=== PATIENT | female | born 1970 | race Caucasian/White ===

== ENCOUNTER 2017-01-25 09:17 | Emergency (ER) | payer OTHER ==
--- NOTE | 2017-01-25 09:37 | ED ---
General Adult HPI - General Chief complaint: Extremity Injury, Lower Stated complaint: fall, [facility] Time Seen by Provider: 01/25/17 09:30 Source: patient, RN notes reviewed Mode of arrival: wheelchair Limitations: no limitations - History of Present Illness Initial comments: Patient is a 46-year-old female who presents emergency room today with chief complaint of an injury to the right knee times one day. Does admit that she was at work yesterday when she slipped. States she did not fall but she believes she twisted the right knee. States she was able to continue to work and ambulate. States she was walking with a limp. States that seems like it's gotten tighter and more difficulty walking at this time is experiencing some pain in the posterior lateral aspect of the right knee. States worse with certain movements. Denies any other complaints or associated symptoms. Patient denies any recent fever, chills, shortness of breath, chest pain, back pain, abdominal pain, nausea or vomiting, numbness or tingling, dysuria or hematuria, constipation or diarrhea, headaches or visual changes, or any other complaints. - Related Data Previous Rx's Medication Instructions Recorded Ibuprofen [Motrin] 600 mg PO Q6HR PRN #40 day 01/25/17 Allergies Allergy/AdvReac Type Severity Reaction Status Date / Time aspirin Allergy Unknown Verified 01/25/17 09:29 Review of Systems ROS Statement: Those systems with pertinent positive or pertinent negative responses have been documented in the HPI. ROS Other: All systems not noted in ROS Statement are negative. Past Medical History Past Medical History: GERD/Reflux Additional Past Medical History / Comment(s): back pain, ulcers History of Any Multi-Drug Resistant Organisms: None Reported Past Surgical History: Cholecystectomy, Tubal Ligation Past Psychological History: No Psychological Hx Reported Smoking Status: Never smoker Past Alcohol Use History: None Reported Past Drug Use History: None Reported General Exam - General Exam Comments Initial Comments: General: The patient is awake and alert, in no distress, and does not appear acutely ill. Neck: The neck is supple, there is no tenderness or JVD. Cardiovascular: There is a regular rate and rhythm. No murmur, rub or gallop is appreciated. Respiratory: Lungs are clear to auscultation, respirations are non-labored, breath sounds are equal. No wheezes, stridor, rales, or rhonchi. Musculoskeletal: Patient does have normal appearance the right knee no obvious swelling. She shows limited range of motion both flexion and extension minus approximately 5-10. Patient sensations are intact with pulses are bilaterally 2+. Does have tenderness over the lateral posterior aspects of the right knee. Does have a positive varus stress. Negative valgus. Neurological: A&O x 3. CN II-XII intact, There are no obvious motor or sensory deficits. Coordination appears grossly intact. Speech is normal. Skin: Skin is warm and dry and no rashes or lesions are noted. Psychiatric: Normal mood and affect. Limitations: no limitations Course Vital Signs 01/25/17 09:27 Temperature 98.1 F Pulse Rate 80 Respiratory 20 Rate Blood Pressure 131/77 O2 Sat by Pulse 98 Oximetry Medical Decision Making - Medical Decision Making Patient reexamined at this time shows no signs of distress. Patient's x-ray no acute fracture dislocation. Patient will placed in knee immobilizer for possible ligamentous injury. Advised follow-up orthopedics. Advised return if any symptoms increase or worsen or for any other concerns. Disposition Clinical Impression: Knee injury Disposition: HOME SELF-CARE Condition: Good Instructions: Knee Pain (ED) Additional Instructions: Please use medication as discussed. Please follow-up with orthopedics in the next 2 days. Please return to emergency room if the symptoms increase or worsen or for any other concerns. Prescriptions: Ibuprofen [Motrin] 600 mg PO Q6HR PRN #40 day PRN Reason: Pain Referrals: Eduar Batista MD [Primary Care Provider] - 1-2 days Renny Ann DO [Doctor of Osteopathic Medicine] - 1-2 days Time of Disposition: 10:51
--- NOTE | 2017-01-25 10:46 | XR ---
EXAMINATION TYPE: XR knee complete RT DATE OF EXAM: 01/25/2017 10:22 AM COMPARISON: NONE HISTORY: Limited mobility after twisting injury with lateral knee pain. TECHNIQUE: 3 radiographic views of the right knee were obtained. FINDINGS: There is normal alignment of the femoral tibial and patellofemoral joints. No evidence of f racture or dislocation. Joint spaces are preserved. Small suprapatellar joint effusion is present. Os seous mineralization is unremarkable. No radiopaque foreign bodies. IMPRESSION: No evidence of fracture or dislocation. If there is clinical concern for ligamentous inju ry given the provided history MR could be performed for further evaluation on a nonemergent basis.
[2017-01-25 11:39] VITALS: BP 124/82; PULSE 64; RESP 18; TEMP 97.4
== END 2017-01-25 11:40 | disposition home or self-care (01) ==
LOC: EC 09:17
DX: S89.91XA Unspecified injury of right lower leg, initial encounter (principal); M25.561 Pain in right knee; Z88.6 Allergy status to analgesic agent; W01.0XXA Fall on same level from slipping, tripping and stumbling without subsequent striking against object, initial encounter; Y92.69 Other specified industrial and construction area as the place of occurrence of the external cause; Y99.0 Civilian activity done for income or pay
CPT/HCPCS: 99283

== ENCOUNTER 2023-10-13 07:55 | Emergency (ER) | payer OTHER ==
[2023-10-13 08:15] VITALS: TEMP 97
[2023-10-13] MEDS ORDERED: KETOROLAC 15 MG/ML 1 ML VIAL IVP STA (08:15)
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
[2023-10-13 08:40] LABS: Anisocytosis Slight; Basophils # (A) 0.1 k/uL (0-0.2); Basophils % (A) 1 %; Eosinophils # (A) 0.6 k/uL (0-0.7); Eosinophils % (A) 12 %; HCT 34.4 % (34.0-46.0); HGB 10.5 gm/dL (11.4-16.0); Hypochromasia Marked; Lymphocytes # (A) 1.2 k/uL (1.0-4.8); Lymphocytes % (A) 23 %; MCHC 30.6 g/dL (31.0-37.0); MCV 72.1 fL (80.0-100.0); Mean Platelet Volume 7.4; Microcytosis Moderate; Monocytes # (A) 0.3 k/uL (0-1.0); Monocytes % (A) 6 %; Neutrophils # (A) 2.8 k/uL (1.3-7.7); Neutrophils % (A) 55 %; Platelet Count 201 k/uL (150-450); RBC 4.77 m/uL (3.80-5.40); RDW 17.4 % (11.5-15.5); WBC 5.1 k/uL (3.8-10.6)
[2023-10-13 08:51] LABS: ALT 26 U/L (4-34); AST 30 U/L (14-36); African American GFR (CKD) >90 (>60 ml/min/1.73 sqM); Alkaline Phosphatase 88 U/L (38-126); Anion Gap 7 mmol/L; Blood Urea Nitrogen 15 mg/dL (7-17); Calcium 9.2 mg/dL (8.4-10.2); Carbon Dioxide 23 mmol/L (22-30); Chloride 112 mmol/L (98-107); Glucose 106 mg/dL (74-99); Non-African American GFR(CKD) >90 (>60 ml/min/1.73 sqM); Potassium 4.2 mmol/L (3.5-5.1); Sodium 142 mmol/L (137-145)
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
--- NOTE | 2023-10-13 09:23 | XR ---
EXAMINATION TYPE: XR chest 2V DATE OF EXAM: 10/13/2023 9:14 AM CLINICAL INDICATION:Female, 53 years old with history of Difficulty breathing ; COMPARISON: Sternal radiograph. TECHNIQUE: XR chest 2V Frontal and lateral views of the chest. FINDINGS: Lungs/Pleura: There is no evidence of pleural effusion, focal consolidation, or pneumothorax. Pulmonary vascularity: Unremarkable. Heart/mediastinum: Cardiomediastinal silhouette is unremarkable. Musculoskeletal: No acute osseous pathology. Other findings: None IMPRESSION: No acute cardiopulmonary disease/process.
[2023-10-13 09:33] VITALS: BP 146/84
[2023-10-13 10:49] VITALS: PULSE 83; RESP 16
== END 2023-10-13 10:47 | disposition home or self-care (01) ==
LOC: EC 07:55
DX: R07.89 Other chest pain (principal); Z88.6 Allergy status to analgesic agent; Z90.49 Acquired absence of other specified parts of digestive tract; W22.09XA Striking against other stationary object, initial encounter; Y92.410 Unspecified street and highway as the place of occurrence of the external cause
CPT/HCPCS: 36415; 93005; 80053; 84484; 85025; 71120; 71046; 99285; 96374; J1885

== ENCOUNTER → 2024-09-27 | Outpatient (CLI) | payer OTHER ==
[~2024-09-27] MED LIST: REGADENOSON 0.4 MG/5 ML SYRINGE IV PRN
--- NOTE | 2024-09-27 10:43 | CA ---
Lexiscan Nuclear Stress Test Report Name: Jeannie Dawson Exam Date: 09/27/2024 09:21 Exam Location: [facility] Ht (in): 61 Wt (lb): 183 BSA: 1.82 Ordering Phys: Randal Batista MD Referring Phys: RANDAL BATISTA,, Technologist: Tavon Lui Age: 54 Gender: F : 1970 Procedure CPT: Indications: I20.89 OTHER FORMS OF ANGINA PECTORIS ICD-10 Codes: Patient History: Medications: losartan Meds past 24 hrs: Pretest Chest Pain: STRESS TEST Lexiscan Protocol Exercise Duration (min:sec): 02:[address] Depressions (mm): Angina Score: Chaudhari Score: Resting HR (bpm): 67 Peak HR (bpm): 93 Resting BP (mmHg): 139 / 72 Peak BP (mmHg): 131 / 71 MPHR: 167 Target HR: 142 % MPHR: 56 METS: 1.0 Total Dose: Peak Dose: Atropine: Double Product: 97400 BP Response: Stress Termination: infusion complete Stress Symptoms: no symptoms Stress Summary: ECG ANALYSIS Resting ECG: Normal sinus rhythm with incomplete right bundle branch block Stress ECG: no significant ST-T wave changes concerning for ischemia. No sustained arrhythmias or ectopic beats during stress test. CONCLUSIONS 1. Normal hemodynamic and clinical response to Lexiscan infusion. 2. Non-ischemic EKG response to lexiscan infusion Please refer to the nuclear imaging portion of this stress test for complete interpretation of the study. Dr Jonathan High (Electronically Signed) Final Date: 27 September 2024 10:43
--- NOTE | 2024-09-27 12:22 | NM ---
EXAMINATION TYPE: NM stress lexiscan cardiolite DATE OF EXAM: 09/27/2024 COMPARISON: NONE CLINICAL INDICATION: Female, 54 years old with history of I20.89 OTHER FORMS OF ANGINA PECTORIS; ches t pain TECHNIQUE: After the intravenous administration of 8.38 mCi Tc 99m Sestamibi - Cardiolite resting SP ECT images acquired 24.3 minutes post injection. The patient received 0.4mg Lexiscan, 45 mCi Tc 99m Sestamibi - Stress images obtained 40 minutes post injection FINDINGS: Review of stress and rest SPECT images demonstrates patchy areas of decreased perfusion on rest along the anterior wall as well as the septal and lateral nasal sloan. These abnormalities are not seen on the stress images. Gated analysis shows normal wall motion with an estimated left ventricular ejecti on fraction of 61 %. TID is calculated at 0.95, within normal limits. IMPRESSION: Areas of attenuation artifact on the rest images. No scintigraphic evidence for reversible ischemia. [facility], , 09/27/2024 12:19 PM
== END | disposition home or self-care (01) ==
LOC: RADNMMAIN 07:57
PROVIDERS: ATTEND Family Medicine
DX: I20.89 Other forms of angina pectoris (principal); R07.9 Chest pain, unspecified
CPT/HCPCS: 93017; 78452; A9500; J2785

== ENCOUNTER 2025-01-24 10:10 | Day surgery (SDC) | payer OTHER ==
[~2025-01-24 10:10] MED LIST changes: +LIDOCAINE 1% (10MG/ML) FOR IV START INTRADERMA PRN; -REGADENOSON 0.4 MG/5 ML SYRINGE IV PRN
[2025-01-24] MEDS: IV FLUID CONTINUATION 1,000 ML IV ONE (11:03)
[2025-01-24] MEDS: LACTATED RINGERS 1,000 ML IV SCH (11:03)
[2025-01-24 11:06] VITALS: TEMP 97.8
[2025-01-24] MEDS ORDERED: PROPOFOL 10 MG/ML 20 ML VIAL IV ONE (11:28)
[2025-01-24] MEDS ORDERED: LIDOCAINE 1% INJ 10MG/ML (20 ML MDV) ONE (11:28)
--- NOTE | 2025-01-24 11:38 | P.PCN ---
Date of Procedure: 01/24/25 Procedure(s) Performed: BRIEF HISTORY: Patient is a 54-year-old, pleasant, white female scheduled for an upper endoscopy as a part evaluation l of longstanding history of GERD. She is presently brandies 40 mg twice daily and symptoms are gradually improving.. PROCEDURE PERFORMED: Esophagogastroduodenoscopy with biopsy. PREOPERATIVE DIAGNOSIS: Longstanding history of GERD. IV sedation per anesthesia. PROCEDURE: After informed consent was obtained, the patient was brought into the endoscopy unit. IV sedation was administered by Anesthesia under continuous monitoring. Initially the Olympus GIF-140 video endoscope was inserted into the mouth. Esophagus intubated without any difficulty. It was gradually advanced into the stomach and duodenum and carefully examined. The bulb and the second part of the duodenum appeared normal. The scope at this time was withdrawn to the stomach, adequately insufflated with air, and upon careful examination, mucosa of the antrum, diffuse gastritis and biopsies were done from this area. Mucosa of the body, cardia and the fundus appeared normal. The scope was then withdrawn into the esophagus. The GE junction was located at 36 cm from the incisors. It appeared irregular and there was a 4 mm tongues of Mix's appearing mucosa proximal to the GE junction that was biopsied. The rest of the esophagus appeared normal. There were no erosions or ulcerations seen and the patient tolerated the procedure well. IMPRESSION: 1. Mild antral gastritis. 2. 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 3. No evidence of hiatal hernia RECOMMENDATIONS: The findings of this examination were discussed with the patient as well as her family. She was advised to continue with Protonix 40 mg twice daily and follow antireflux measures. If the biopsy confirms the presence of Mix's esophagus, recommend repeat upper endoscopy in 3 years..
[2025-01-24 12:01] VITALS: BP 149/76; PULSE 64; RESP 18
== END 2025-01-24 12:26 | disposition home or self-care (01) ==
LOC: ORWHC2ENDO 10:10
PROVIDERS: ATTEND Internal Medicine Gastroenterology
DX: K29.50 Unspecified chronic gastritis without bleeding (principal); K21.00 Gastro-esophageal reflux disease with esophagitis, without bleeding; K22.70 Barrett's esophagus without dysplasia
CPT/HCPCS: 43239; J2003; J2704; 88305; 88313